=== PATIENT | male | born 1950 | race Caucasian/White ===

== ENCOUNTER 2017-07-25 20:10 | Emergency (ER) | payer OTHER ==
[~2017-07-25] VITALS: Ht 180.3 cm; Wt 111.2 kg
[~2017-07-25 20:10] MED LIST: ASCAUNK; GABA-113 PO; IBUP-1459 PO; MULT-506 PO
[2017-07-25 20:11] VITALS: TEMP 36.8; Ht 180.3 cm; Wt 111.2 kg
[2017-07-25] MEDS ORDERED: ASCO10003 PO (20:38)
[2017-07-25] MEDS ORDERED: LACT1CAP6 PO (20:38)
[2017-07-25] MEDS ORDERED: MELO7.5T5 PO (20:38)
[2017-07-25] MEDS ORDERED: OMEG120013 PO (20:38)
[2017-07-25] MEDS ORDERED: ALLO300T2 PO (20:38)
[2017-07-25] MEDS ORDERED: LEVO75TA5 PO (20:38)
[2017-07-25] MEDS ORDERED: CALC-393 PO (20:38)
[2017-07-25] MEDS ORDERED: NIAC500T11 PO (20:38)
[2017-07-25] MEDS ORDERED: NAPR-1169 PO (20:45)
[2017-07-25] MEDS ORDERED: ANTICRE6 PO (20:45)
[2017-07-25] MEDS ORDERED: ROSU20TA PO (20:45)
--- NOTE | 2017-07-25 20:50 | EMERGENCY ROOM VISIT NOTE ---
History Report prepared by Courtney: Andry Aquino Under the Supervision of: Dr. Baldomero Deluca M.D. First contact with patient: 20:22 Chief Complaint: LEG PAIN,LEG INJURY Stated Complaint: VASCULITIS History of Present Illness The patient is a 66 year old male with a past medical history of lymphoma and vasculitis who presents to the ED with a cc of a worsening rash beginning a week ago. Positive for a fever and gout symptoms. Negative for chills, cough, N/V, and abdominal pain. The patient states that the rash on the back of his calves has significantly worsened from last night into today and spread to other parts of his body. Prior to his rash symptoms, the patient notes that he was experiencing weak calves. He reports that he was just recently diagnosed with vasculitis and also began to experience bad gout a week ago for which he was started on Crestor. The patient states that he traveled to [place] last month. The patient states that his last treatment for lymphoma was 3 years ago. Source of History: patient Onset: a week ago Position: other (global) Quality: other (rash) Timing: worsening Associated Symptoms: + fevers, No chills, No cough, No nausea, No vomiting Review of Systems See HPI for pertinent positives and negatives. A total of ten systems were reviewed and were otherwise negative. Past Medical & Surgical Medical Problems: (1) Lymphoma (2) Vasculitis Family History No pertinent family history stated. Social History Smoking Status: Never Smoker Marital Status: single Housing Status: lives with family Occupation Status: employed Current/Historical Medications Scheduled Allopurinol (Zyloprim), 300 MG PO DAILY Ascorbic Acid (Vitamin C), 1,000 MG PO DAILY Calcium Carbonate (Calcium), 600 MG PO DAILY Gabapentin (Neurontin), 300 MG PO BID Lactobacillus (Probiotic), 1 CAP PO DAILY Levothyroxine Sodium (Levothyroxine Sodium), 75 MCG PO DAILY Multivitamin (Multivitamin), 1 TAB PO DAILY Naproxen (Naprosyn), 500 MG PO DIRECTED Niacin (Niacin), 500 MG PO DAILY [place]-3 Fatty Acids (Fish Oil), 1,200 MG PO DAILY Rosuvastatin Calcium (Crestor), Unknown Dose PO DAILY [Antibiotic], Unknown Dose PO DAILY Scheduled PRN Meloxicam (Mobic), 7.5 MG PO DAILY PRN for Pain Allergies Coded Allergies: Sulfa Drugs (Verified Allergy, Severe, [id number], ITCHY, 07/25/17) Physical Exam Vital Signs Date Time Temp Pulse Resp B/P (MAP) Pulse Ox O2 Delivery O2 Flow Rate FiO2 07/25/17 23:37 59 20 136/84 96 07/25/17 21:54 63 20 138/82 95 Room Air 07/25/17 20:11 36.8 78 18 165/83 98 Room Air Physical Exam GENERAL: Awake, alert, well-appearing, NAD HENT: Normocephalic, atraumatic. EYES: Normal conjunctiva. Sclera non-icteric. NECK: Supple. No nuchal rigidity. FROM. RESPIRATORY: CTAB, no rhonchi, wheezing, crackles CARDIAC: RRR, no MRG ABDOMEN: Soft, NTND, BS+ MSK: No chest wall TTP, no LE edema NEURO: GCS 15, CN 2-12 intact, moves all 4s on command. NVI for lower extremities, Nikolsky negative. SKIN: No rash or jaundice noted. Non blanching petechiae and purpura over abdomen, bilateral buttocks, and lower extremities. Bullae to right posterior calf, compartments soft. Medical Decision & Procedures Laboratory Results 07/25/17 20:55 Red Blood Count 4.41, Mean Corpuscular Volume 86.2, Mean Corpuscular Hemoglobin 29.3, Mean Corpuscular Hemoglobin Concent 33.9, Mean Platelet Volume 9.4, Neutrophils (%) (Auto) 61.7, Lymphocytes (%) (Auto) 26.0, Monocytes (%) (Auto) 6.9, Eosinophils (%) (Auto) 3.9, Basophils (%) (Auto) 0.5, Neutrophils # (Auto) 3.65, Lymphocytes # (Auto) 1.54, Monocytes # (Auto) 0.41, Eosinophils # (Auto) 0.23, Basophils # (Auto) 0.03 07/25/17 20:55 Test 07/25/17 20:55 07/25/17 21:55 White Blood Count 5.92 K/uL (4.8-10.8) Red Blood Count 4.41 M/uL (4.7-6.1) Hemoglobin 12.9 g/dL (14.0-18.0) Hematocrit 38.0 % (42-52) Mean Corpuscular Volume 86.2 fL (80-100) Mean Corpuscular Hemoglobin 29.3 pg (25-34) Mean Corpuscular Hemoglobin Concent 33.9 g/dl (32-36) Platelet Count 343 K/uL (130-400) Mean Platelet Volume 9.4 fL (7.4-10.4) Neutrophils (%) (Auto) 61.7 % Lymphocytes (%) (Auto) 26.0 % Monocytes (%) (Auto) 6.9 % Eosinophils (%) (Auto) 3.9 % Basophils (%) (Auto) 0.5 % Neutrophils # (Auto) 3.65 K/uL (1.4-6.5) Lymphocytes # (Auto) 1.54 K/uL (1.2-3.4) Monocytes # (Auto) 0.41 K/uL (0.11-0.59) Eosinophils # (Auto) 0.23 K/uL (0-0.5) Basophils # (Auto) 0.03 K/uL (0-0.2) RDW Standard Deviation 41.7 fL (36.4-46.3) RDW Coefficient of Variation 13.2 % (11.5-14.5) Immature Granulocyte % (Auto) 1.0 % Immature Granulocyte # (Auto) 0.06 K/uL (0.00-0.02) Erythrocyte Sedimentation Rate 51 mm/hr (0-14) Prothrombin Time 11.6 SECONDS (9.0-12.0) Prothromb Time International Ratio 1.1 (0.9-1.1) Activated Partial Thromboplast Time 31.6 SECONDS (21.0-31.0) Partial Thromboplastin Ratio 1.2 Anion Gap 10.0 mmol/L (3-11) Est Creatinine Clear Calc Drug Dose 80.4 ml/min Estimated GFR () 77.5 Estimated GFR (Non- 66.9 BUN/Creatinine Ratio 20.6 (10-20) Calcium Level 8.7 mg/dl (8.5-10.1) Total Bilirubin 0.3 mg/dl (0.2-1) Direct Bilirubin < 0.1 mg/dl (0-0.2) Aspartate Amino Transf (AST/SGOT) 44 U/L (15-37) Alanine Aminotransferase (ALT/SGPT) 47 U/L (12-78) Alkaline Phosphatase 101 U/L (45-117) C-Reactive Protein 5.32 mg/dl (0-0.29) Total Protein 7.5 gm/dl (6.4-8.2) Albumin 3.2 gm/dl (3.4-5.0) Lipase 236 U/L (73-393) Urine Color YELLOW Urine Appearance CLEAR (CLEAR) Urine pH 5.0 (4.5-7.5) Urine Specific [place] 1.023 (1.000-1.030) Urine Protein NEG (NEG) Urine Glucose (UA) NEG (NEG) Urine Ketones NEG (NEG) Urine Occult Blood NEG (NEG) Urine Nitrite NEG (NEG) Urine Bilirubin NEG (NEG) Urine Urobilinogen NEG (NEG) Urine Leukocyte Esterase NEG (NEG) Laboratory results reviewed by me ED Course 2030: The patient was evaluated in room C1. A complete history and physical exam was performed. 2214: I reevaluated and updated the patient. A hospitalist is currently assessing the patient. He will talk to dermatology to see if the patient needs to stay. 2315: I spoke to Dr. Colunga who spoke to Dr. Rose of Dermatology. It was decided that the patient was not to receive steroids. He will be seen as a walk in tomorrow morning. 2330: I reevaluated and updated the patient. They agree with the plan. 2347: I reevaluated the patient. Discussed results and discharge instructions: He verbalized understanding and agreement. The patient is ready for discharge. Medical Decision The patient is a 66 year old male with a past medical history of lymphoma and vasculitics who presents to the ED with a cc of a worsening rash beginning a week ago. Positive for a fever. Negative for chills, cough, N/V, gout symptoms, and abdominal pain. Differential diagnoses include: vasculitis, HSP, ITP, TTP, bullous pemphigoid, SJS/TEN, cellulitis, abscess, and nec fasc. Patient was seen and evaluated at the bedside. Patient did have a recent change in medications including Crestor, allopurinol, and an antibiotic of which the name he cannot remember. Patient states that he developed these small lesions to his lower extremities beginning on was gotten worse and extended up to his abdomen. Patient does have palpable purpura that is present over the bilateral lower extremities bilateral buttocks as well as the abdomen. Patient does not display any of this over the back or upper extremities neck or face. Patient has no involvement of the conjunctiva oral mucosa. Patient does have some bulla to the right posterior calf. Nikolsky is negative. Given the patient's recent medications it could be a delayed sensitivity reaction to one of these medicines. He was told to stop these at this time. This could be something like Lewis-Cristopher's however does not involve the oral mucosa and may be less likely given that he developed symptoms approximate 7 days after starting the medicines. Less likely to be ITP or TTP as the patient does not have any thrombocytopenia. Less likely to be HSP given the patient's age group however cannot rule out an autoimmune type vasculitis without biopsy. I did discuss the patient with the hospitalist who did discuss the patient with the on-call embossograph operator. They stated that he could be seen as a walk-in tomorrow morning. Given that the patient would not be receiving any additional care until tomorrow morning anyway he was deemed suitable for outpatient follow-up and treatment. I did give the patient strict return precautions as well as some follow-up information with the embossograph operator tomorrow. This also may be some sort of bullous pemphigoid given his age group and the bulla. Patient was given strict follow-up, discharge, and return precautions. All questions were answered. Patient was deemed suitable for outpatient follow-up at this time. Patient agreed with the plan of care and was safely discharged home. Blood Pressure Screening Patient's blood pressure: Normal blood pressure Consults Time Called: 2201 Consulting Physician: Dr. Colunga - Hospitalist, [facility] Returned Call: 2203 Discussed the patient's case. The patient was deemed stable enough for discharge. Impression Primary Impression: Purpura Scribe Attestation The scribe's documentation has been prepared under my direction and personally reviewed by me in its entirety. I confirm that the note above accurately reflects all work, treatment, procedures, and medical decision making performed by me. Departure Information Dispostion Home / Self-Care Referrals Norma Marcelino PA-C (PCP) Evens Rose M.D. Forms HOME CARE DOCUMENTATION FORM, IMPORTANT VISIT INFORMATION Patient Instructions My [facility] Additional Instructions Please return to the emergency department if you have worsening or recurrent symptoms not amenable to at-home treatment. Please call for a follow-up appointment with her primary care physician. Please take your medications as prescribed. If you have other concerns and/or complaints please feel free to also call your primary care physician's office or return the ED for further evaluation, management, and treatment. Cease all your medications until seen by the embossograph operator. Please follow up with Dr. Rose in his office tomorrow. Please call ahead. Address: [address] [place] [id number] You have been examined and treated today on an emergency basis only. This is not a substitute for, or an effort to provide, complete comprehensive medical care. It is impossible to recognize and treat all injuries or illnesses in a single emergency department visit. It is therefore important that you follow up closely with [facility], your PCP, and/or your specialist(s). Call as soon as possible for an appointment. Thank you for your time and consideration. I look forward to speaking with you again soon. Please don't hesitate to call us if you have any questions.
[2017-07-25 21:03] LABS: BASO % 0.5 %; BASO ABS # 0.03 K/uL (0-0.2); COMPLETE YES; EOS % 3.9 %; LYMPH ABS # 1.54 K/uL (1.2-3.4); MEAN CELL VOLUME 86.2 fL (80-100); MEAN CORPUSCULAR HEMOGLOBIN 29.3 pg (25-34); MEAN CORPUSCULAR HGB CONC 33.9 g/dl (32-36); MEAN PLATELET VOLUME 9.4 fL (7.4-10.4); MONO % 6.9 %; NEUT % 61.7 %; PLATELET COUNT 343 K/uL (130-400); RED BLOOD COUNT 4.41 M/uL (4.7-6.1); WHITE BLOOD COUNT 5.92 K/uL (4.8-10.8)
[2017-07-25 21:14] LABS: INR 1.1 (0.9-1.1); PARTIAL THROMBOPLASTIN RATIO 1.2; PROTHROMBIN TIME (PATIENT) 11.6 SECONDS (9.0-12.0)
[2017-07-25 21:23] LABS: ALT/SGPT 47 U/L (12-78); BLOOD UREA NITROGEN 23 mg/dl (7-18); BUN/CREATININE RATIO 20.6 (10-20); C-REACTIVE PROTEIN 5.32 mg/dl (0-0.29); CALCIUM 8.7 mg/dl (8.5-10.1); CARBON DIOXIDE 25 mmol/L (21-32); CHLORIDE 105 mmol/L (98-107); CREATININE 1.13 mg/dl (0.60-1.40); GLUCOSE 183 mg/dl (70-99); POTASSIUM 4.1 mmol/L (3.5-5.1); SODIUM 139 mmol/L (136-145)
[2017-07-25 21:26] LABS: ALKALINE PHOSPHATASE 101 U/L (45-117); AST/SGOT 44 U/L (15-37)
[2017-07-25 22:17] LABS: URINE APPEARANCE CLEAR (CLEAR); URINE BILIRUBIN NEG (NEG); URINE COLOR YELLOW; URINE NITRITE NEG (NEG); URINE SPECIFIC GRAVITY 1.023 (1.000-1.030); UROBILINOGEN NEG (NEG); ZZUR CULT IF INDIC CLEAN CATCH NO
[2017-07-25 22:18] LABS: MANUAL MICROSCOPIC REQUIRED? NO; REVIEW REQ? NO
--- NOTE | 2017-07-25 23:07 | History and Physical ---
History & Physical Date & Time of Service: Jul 25, 2017 at 22:35 Chief Complaint: Vasculitis Primary Care Physician: No Doctor, Assigned History of Present Illness Source: patient 66 y/o M Hx HPL, gout, multiple lymphomas - completed chemotherapy 3 years prior. Pt had a gout flair 10 days ago - treated with Allopurinol and NSAIDs. The flair was largely limited to his L elbow and there was some concern for adjacent cellulitis so that he was placed on a 10 day course of Doxy. He reports a fever 10 days ago only for one day. 7 days ago, he noted an eruption of a scant maculopapular rash over his lower extremities. The lesions appear to start as small central pustules surrounded by a reddish circumscribed area which can then turn toward black in color. The rash has worsened, coalesced over his R calf and spread to his abdomen. The rash is not painful or particularly itchy. His extremities, palms, feet and face are currently spared. He denies a fever, denies CP, SOB, N/V, diarrhea, dysuria. Labs are notable for an elevated ESR. Past Medical/Surgical History 1) Diffuse large B-cell lymphoma 1995. 2) Follicular lymphoma 2002 - recurrence 2005, 2007 - maintenance chemo terminated 2012 - recent follow-up confirmed cancer-free staus per pt. 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 - never smoked Smoking Status: Never Smoker Marital Status: single Occupational Status: employed Allergies Coded Allergies: Sulfa Drugs (Verified Allergy, Severe, [id number], ITCHY, 07/25/17) Home Medications Scheduled Allopurinol (Zyloprim), 300 MG PO DAILY Ascorbic Acid (Vitamin C), 1,000 MG PO DAILY Calcium Carbonate (Calcium), 600 MG PO DAILY Gabapentin (Neurontin), 300 MG PO BID Lactobacillus (Probiotic), 1 CAP PO DAILY Levothyroxine Sodium (Levothyroxine Sodium), 75 MCG PO DAILY Multivitamin (Multivitamin), 1 TAB PO DAILY Naproxen (Naprosyn), 500 MG PO DIRECTED Niacin (Niacin), 500 MG PO DAILY [place]-3 Fatty Acids (Fish Oil), 1,200 MG PO DAILY Rosuvastatin Calcium (Crestor), Unknown Dose PO DAILY [Antibiotic], Unknown Dose PO DAILY Scheduled PRN Meloxicam (Mobic), 7.5 MG PO DAILY PRN for Pain Review of Systems Constitutional: No fever, No chills, No sweats Eyes: No worsening of vision ENT: No hearing loss, No unusual epistaxis, No nasal symptoms Respiratory: No cough, No wheezing Cardiovascular: No chest pain, No orthopnea, No PND Abdomen: No pain, No nausea, No vomiting Musculoskeletal: + joint pain (Resolved folwing gout treatment - limited to R elbow) Genitourinary - Male: No hematuria, No dysuria, No urinary frequency, No urinary urgency Neurologic: No memory loss, No paralysis, No weakness Psychiatric: No depression symptoms Endocrine: No fatigue Hematologic / Lymphatic: No abnormal bleeding/bruising Integumentary: + rash Allergic / Immunologic: No environmental allergies Physical Exam Vital Signs Date Time Temp Pulse Resp B/P (MAP) Pulse Ox O2 Delivery O2 Flow Rate FiO2 07/25/17 21:54 63 20 138/82 95 Room Air 07/25/17 20:11 36.8 78 18 165/83 98 Room Air General Appearance: WD/WN, no apparent distress Head: normocephalic Eyes: normal inspection ENT: normal ENT inspection, pharynx normal Neck: supple, no JVD Respiratory/Chest: chest non-tender, lungs clear, normal breath sounds Cardiovascular: regular rate, rhythm, no edema, no gallop Abdomen/GI: normal bowel sounds, non tender, soft Back: normal inspection, no CVA tenderness, no muscle spasm, normal range of motion Extremities/Musculoskelatal: normal inspection Neurologic/Psych: 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, no motor/sensory deficits, alert, normal mood/affect, normal reflexes, oriented x 3 Skin: + pertinent finding (Maculpapular rash - erythematous to necrotic circumscribed lesions lesions over lower extremities and scant distribution over abdomen - small, central pustules present over early lesions - there is some excoriation over the skin of the elbow) Diagnostics Laboratory Results Results Past 24 Hours Test 07/25/17 20:55 07/25/17 21:55 Range/Units White Blood Count 5.92 4.8-10.8 K/uL Red Blood Count 4.41 4.7-6.1 M/uL Hemoglobin 12.9 14.0-18.0 g/dL Hematocrit 38.0 42-52 % Mean Corpuscular Volume 86.2 80-100 fL Mean Corpuscular Hemoglobin 29.3 25-34 pg Mean Corpuscular Hemoglobin Concent 33.9 32-36 g/dl Platelet Count 343 130-400 K/uL Mean Platelet Volume 9.4 7.4-10.4 fL Neutrophils (%) (Auto) 61.7 % Lymphocytes (%) (Auto) 26.0 % Monocytes (%) (Auto) 6.9 % Eosinophils (%) (Auto) 3.9 % Basophils (%) (Auto) 0.5 % Neutrophils # (Auto) 3.65 1.4-6.5 K/uL Lymphocytes # (Auto) 1.54 1.2-3.4 K/uL Monocytes # (Auto) 0.41 0.11-0.59 K/uL Eosinophils # (Auto) 0.23 0-0.5 K/uL Basophils # (Auto) 0.03 0-0.2 K/uL RDW Standard Deviation 41.7 36.4-46.3 fL RDW Coefficient of Variation 13.2 11.5-14.5 % Immature Granulocyte % (Auto) 1.0 % Immature Granulocyte # (Auto) 0.06 0.00-0.02 K/uL Erythrocyte Sedimentation Rate 51 0-14 mm/hr Prothrombin Time 11.6 9.0-12.0 SECONDS Prothromb Time International Ratio 1.1 0.9-1.1 Activated Partial Thromboplast Time 31.6 21.0-31.0 SECONDS Partial Thromboplastin Ratio 1.2 Sodium Level 139 136-145 mmol/L Potassium Level 4.1 3.5-5.1 mmol/L Chloride Level 105 98-107 mmol/L Carbon Dioxide Level 25 21-32 mmol/L Anion Gap 10.0 3-11 mmol/L Blood Urea Nitrogen 23 7-18 mg/dl Creatinine 1.13 0.60-1.40 mg/dl Est Creatinine Clear Calc Drug Dose 80.4 ml/min Estimated GFR () 77.5 Estimated GFR (Non- 66.9 BUN/Creatinine Ratio 20.6 10-20 Random Glucose 183 70-99 mg/dl Calcium Level 8.7 8.5-10.1 mg/dl Total Bilirubin 0.3 0.2-1 mg/dl Direct Bilirubin < 0.1 0-0.2 mg/dl Aspartate Amino Transf (AST/SGOT) 44 15-37 U/L Alanine Aminotransferase (ALT/SGPT) 47 12-78 U/L Alkaline Phosphatase 101 45-117 U/L C-Reactive Protein 5.32 0-0.29 mg/dl Total Protein 7.5 6.4-8.2 gm/dl Albumin 3.2 3.4-5.0 gm/dl Lipase 236 73-393 U/L Urine Color YELLOW Urine Appearance CLEAR CLEAR Urine pH 5.0 4.5-7.5 Urine Specific [place] 1.023 1.000-1.030 Urine Protein NEG NEG Urine Glucose (UA) NEG NEG Urine Ketones NEG NEG Urine Occult Blood NEG NEG Urine Nitrite NEG NEG Urine Bilirubin NEG NEG Urine Urobilinogen NEG NEG Urine Leukocyte Esterase NEG NEG Impression Assessment and Plan 66 y/o M Hx HPL, gout, multiple lymphomas - completed chemotherapy 3 years prior. Pt had a gout flair 10 days ago - treated with Allopurinol and NSAIDs. The flair was largely limited to his L elbow and there was some concern for adjacent cellulitis so that he was placed on a 10 day course of Doxy. He reports a fever 10 days ago only for one day. 7 days ago, he noted an eruption of a scant maculopapular rash over his lower extremities. The lesions appear to start as small central pustules surrounded by a reddish circumscribed area which can then turn toward black in color. The rash has worsened, coalesced over his R calf and spread to his abdomen. The rash is not painful or particularly itchy. His extremities, palms, feet and face are currently spared. He denies a fever, denies CP, SOB, N/V, diarrhea, dysuria. Labs are notable for an elevated ESR. 1) Rash - possibly a drug-related eruption as he was placed on Doxy 3 days before the rash started. He has also recently started Crestor and had increased NSAID use due to gout. The primary concern here would be early Celio-Cristopher or a vasculitic rash. There is no convincing evidence of infection so that we will hold the majority of his medications pending dermatology assessment and would consider initiation of steroid therapy. We have contacted the dermatology clinic to schedule an AM appointment and have discussed the case with dermatology. The pt will therefore be DCd to f/u with derm and can be referred back to the hospital if needed. He is advised to return with onset of systemic symptoms or rapid/accelerated spread of his rash. 2) HPL - Crestor held 3) Hypothyroidism - Cont Synthroid 4) Gout - can be treated with Steroids pending rash resolution as needed. Please consider the above an outpt consult Total time for this consult including review of labs, meds, imaging - discussion with pt and ER attending - 37 min Level of Care Med/Surg Resuscitation Status FULL RESUSCITATION VTE Prophylaxis Given or contraindicated: Drug Interaction
[2017-07-25 23:37] VITALS: BP 136/84; PULSE 59; O2SAT 96
== END 2017-07-25 23:38 | disposition home or self-care (01) ==
LOC: C.EDB 20:10 → C.EDC 23:38
DX: D69.2 Other nonthrombocytopenic purpura (principal); C85.90 Non-Hodgkin lymphoma, unspecified, unspecified site; I77.6 Arteritis, unspecified

== ENCOUNTER 2019-10-27 10:04 | Inpatient (IN) ==
[2019-10-27] MEDS ORDERED: SODIUM CHLORIDE 0.9% 1000ML 2,000 ML IV ONE (10:51)
[2019-10-27 10:57] LABS: Basophils # (auto) 0.02 K/uL (0-0.2); Basophils % (auto) 0.4 %; Eosinophils # (auto) 0.11 K/uL (0-0.5); Eosinophils % (auto) 2.1 %; Hematocrit (blood only) 40.4 % (42-52); Hemoglobin 14.8 g/dL (14.0-18.0); Immature Granulocytes # (auto) 0.02 K/uL (0.00-0.02); Immature Granulocytes % (auto) 0.4 %; Lymphocytes # (auto) 1.46 K/uL (1.2-3.4); Lymphocytes % (auto) 28.2 %; Mean Corpuscular Hemoglobin 30.5 pg (25-34); Mean Corpuscular Hgb Conc 36.6 g/dL (32-36); Mean Corpuscular Volume 83.1 fL (80-100); Mean Platelet Volume 10.9 fL (7.4-10.4); Monocytes # (auto) 0.45 K/uL (0.11-0.59); Monocytes % (auto) 8.7 %; Neutrophils # (auto) 3.12 K/uL (1.4-6.5); Neutrophils % (auto) 60.2 %; Platelet Count 195 K/uL (130-400); RDW Coefficient of Variation 13.4 % (11.5-14.5); RDW Standard Deviation 40.1 fL (36.4-46.3); Red Blood Count 4.86 M/uL (4.7-6.1); White Blood Count 5.18 K/uL (4.8-10.8)
[2019-10-27 11:15] LABS: Base Excess VBG 2.4 mEq/L; Oxygen Saturation VBG 66.5 %; pH VBG 7.42 (7.36-7.41)
[2019-10-27 11:28] LABS: Albumin Level 3.9 gm/dl (3.4-5.0); BUN Creatinine Ratio 22.6 (10-20); Bilirubin,Total 0.7 mg/dl (0.2-1); Calcium 9.4 mg/dl (8.5-10.1); Creatinine Clr Calc Pharmacy 59.6 ml/min; Est GFR (African American) 57.5; Est GFR (Non-African American) 49.6; Globulin 4.1 gm/dl (2.5-4.0); Potassium 4.5 mmol/L (3.5-5.1)
[2019-10-27 11:48] LABS: Beta-Hydroxybutyrate 2.36 mg/dl (0.2-2.81)
[2019-10-27 11:50] LABS: Appearance Urine Clear (Clear); Bilirubin Urine Negative (Negative); Blood Urine Negative (Negative); Color Urine Yellow; Glucose Urine UA 3+ (Negative); Ketones Urine Negative (Negative); Leukocyte Esterase Urine Negative (Negative); Nitrite Urine Negative (Negative); Protein Urine Negative (Negative); Specific Gravity Urine 1.031 (1.000-1.030); Urobilinogen Urine Negative (Negative)
[2019-10-27] MEDS ORDERED: NovoLIN-R INSULIN PER UNIT CHARGE IV STA (12:01)
--- NOTE | 2019-10-27 13:39 | History & Physical Report ---
Date of Service October 27, 2019 Assessment & Plan (1) Hyperglycemia: (2) Diabetes mellitus type II, uncontrolled: This is a 68-year-old male with a PMH of recurrent low-grade lymphoma in remission, newly diagnosed type 2 diabetes, HLD and other medical problems listed below who presents based on PCP recommendation due to hyperglycemia. -Endorses polydipsia, polyuria, blurred vision and 20 lb weight loss since August -Hgb a1c yesterday elevated at 12 and was sent to ED for further mgmt -Initial BSG of 726 that decreased to 564 after 2 L NSS. Was given 10 units of IV regular insulin with repeat BSG of 372 -Glycemic management per pharmacy with basal/bolus regimen as well as OP medication recommendations -Will monitor electrolytes closely and continue IV fluid resuscitation -Diabetic education consult (3) Acute kidney injury: Cr elevated at 1.41 in setting of dehydration (baseline Cr ~ 1) -IV fluids, holding meloxicam -Repeat BMP tomorrow (4) Hypertriglyceridemia: Continue gemfibrozil, niacin (5) Lymphoma, low grade: Follows with Dr. Chavez. Has been in remission for the past few years (6) Gout: Continue allopurinol DVT Ppx: SQ heparin Code status: FULL PCP: Harvey Dispo: Admitted to [facility]. Plan to return home once medically stable. Patient seen in collaboration with Dr. Wesley. Please see addendum. History of Present Illness Chief Complaint: Hyperglycemia, sent from PCP Primary Care Provider: Keerthi Gabriel MD This is a 68-year-old male with a PMH of recurrent low-grade lymphoma in remission, newly diagnosed type 2 diabetes, HLD and other medical problems listed below who presents based on PCP recommendation due to hyperglycemia. Patient initially noted to have elevated blood glucose at the end of September but states he is not started on any medication. For the past few months, endorses increased thirst, urination and a 20 pound weight loss. Also endorses blurry vision and generalized weakness. Had lab work done yesterday and was found to have an elevated hemoglobin A1c of 12. Was sent to ED for further evaluation and concern for DKA/HHS. Upon arrival, was found to have elevated BSG of 726. Creatinine elevated at 1.43 (baseline creatinine ~1). No ketones in urine and beta hydroxybutyric acid is within normal range. Denies any fever, chills, chest pain, palpitations, shortness of breath, nausea, vomiting, abdominal pain, dysuria, diarrhea or constipation. Allergies Allergy/AdvReac Type Severity Reaction Status Date / Time Sulfa (Sulfonamide Allergy Severe [id number], Verified 10/27/19 11:34 Antibiotics) ITCHY doxycycline AdvReac Severe vasculitis Unverified 10/27/19 11:34 Home Medications Home Medications Medication Instructions Recorded Confirmed Type allopurinol 100 mg PO QAM 10/27/19 10/27/19 History allopurinol 300 mg PO QAM 10/27/19 10/27/19 History ascorbic acid (vitamin C) [Vitamin 1,000 mg PO HS 10/27/19 10/27/19 History C] cholecalciferol (vitamin D3) 1,000 unit PO HS 10/27/19 10/27/19 History [Vitamin D3] cyanocobalamin (vitamin B-12) 1,000 mcg PO HS 10/27/19 10/27/19 History [Vitamin B-12] diphenhydramine-acetaminophen 1 tab PO HS 10/27/19 10/27/19 History [Tylenol PM Extra Strength] docusate sodium [Colace] 100 mg PO HS 10/27/19 10/27/19 History gabapentin 300 mg PO BID 10/27/19 10/27/19 History gemfibrozil 600 mg PO BID 10/27/19 10/27/19 History lactobacillus combo no.11 1 cap PO DAILY 10/27/19 10/27/19 History [Probiotic] levothyroxine 88 mcg PO QAM 10/27/19 10/27/19 History melatonin 5 mg PO HS 10/27/19 10/27/19 History meloxicam 15 mg PO QAM 10/27/19 10/27/19 History multivitamin 1 tab PO HS 10/27/19 10/27/19 History niacin 50 mg PO QAM 10/27/19 10/27/19 History omeprazole 20 mg PO DAILY PRN 10/27/19 10/27/19 History sennosides [senna] 8.6 mg PO HS 10/27/19 10/27/19 History Past Med/Surg History Medical History (Updated 10/27/19 @ 14:43 by Julee Scott, PA-C) Gout Hypertriglyceridemia Lymphoma, low grade Surgical History (Updated 10/27/19 @ 14:39 by Julee Chavez PA-C) H/O umbilical hernia repair Family History Other Cancer Diabetes Social History (Updated 10/27/19 @ 14:40 by Julee Chavez PA-C) Feels Safe at Home: Yes Smoking Status: Never smoker Hx Alcohol Use: No Hx Substance Use: No Review of Systems Review of Systems: At least ten systems reviewed and negative except as noted in the HPI. Physical Exam Physical Exam: Please see Dr. Wesley's addendum for physical exam. Results & Data Vital Signs (Past 12 Hours) Vital Signs Temp Pulse Pulse Resp BP BP Pulse Ox 10/27/19 11:32 66 19 123/74 97 10/27/19 10:14 36.9 C 82 16 127/82 97 Laboratory Results Short CBC 10/27/19 Range/Units 10:40 WBC 5.18 (4.8-10.8) K/uL Hgb 14.8 (14.0-18.0) g/dL Hct 40.4 L (42-52) % Plt Count 195 (130-400) K/uL BMP 10/27/19 10/27/19 10:40 10:40 Sodium Cancelled 128 L Potassium Cancelled 4.5 Chloride Cancelled 93 L Carbon Dioxide Cancelled 26 BUN Cancelled 32 H Creatinine Cancelled 1.43 H Glucose Cancelled 726 H* Calcium Cancelled 9.4 Liver Function 10/27/19 Range/Units 10:40 Total Bilirubin 0.7 (0.2-1) mg/dl AST 18 (15-37) U/L ALT 35 (12-78) U/L Alkaline Phosphatase 126 H (45-117) U/L Albumin 3.9 (3.4-5.0) gm/dl Urine 10/27/19 Range/Units 11:30 Urine Color Yellow Urine Appearance Clear (Clear) Urine pH 6.0 (4.5-7.5) Ur Specific [place] 1.031 H (1.000-1.030) Urine Protein Negative (Negative) Urine Glucose (UA) 3+ H (Negative) Code Status & VTE Plan VTE Prophylaxis Plan VTE Prophylaxis will be ordered: Yes Supervising Physician Co-Signing Physician Notes I saw this patient with the physician clinical lab assistant, I participated in the history, physical, review of systems, and physical exam. I reviewed the medications with the patient and the physician clinical lab assistant and helped reconcile the medications. I helped take a detailed family and social history as well. I formulated the assessment and plan personally with the physician clinical lab assistant and went over it with the patient. ROS-No Headache, No Visual Changes, No Nausea, No Vomiting, No Fever, No Chills, No Neck Pain or Stiffness, No Chest Pain, No Palpitations, No SOB, No LAND, No Cough, No Sputum, No Wheezing, No Abdominal Pain, No Diarrhea, No Hematemesis, No Hemoptysis, No Unexpected Weight Loss, No Flank pain, No Melena, No Hematochezia, No Frequency, No Urgency, No Burning, No Hematuria, No Rashes, No Diaphoresis. Appetite is Normal Physical Exam Gen-AAO x 3, NAD, Afebrile Head-NCAT, EOMI, PERRLA, Anicteric Sclera, No Posterior Pharyngeal Erythema Neck-Supple, No JVD, No Thyromegaly, No Masses, No LAD, No Bruits Lungs-Clear to Auscultation Bilaterally, No Rales, No Rhonchi, No Wheezing, No Crepitus Chest-No S4, +S1, +S2, No S3, No Murmurs, No Rubs, No Gallops, No Ectopy Abdomen-Soft, Bowel Sounds Present, Non Tender, Non Distended, No Hepatomegaly, No Splenomegaly, No Palpable Masses, No Rebound, No Rigidity, No Guarding Musculoskeletal-Full Range of Motion Bilaterally, No CVAT Extremities-No Cyanosis, No Clubbing, No Edema Nuero-Cranial Nerves II-XII grossly intact, Motor WNL, DTRs WNL, Strength WNL, Non Focal Psych-Normal Mood
[2019-10-27] MEDS ORDERED: PANTOprazole 40 MG TAB PO PRN (14:10)
[2019-10-27] MEDS ORDERED: PENDING 1/2NSS+20mEq KCL IVF SCH (14:22)
[2019-10-27] MEDS ORDERED: ONDANSETRON INJ 2 MG/ML 2 ML VIAL IV PRN (14:22)
[2019-10-27] MEDS ORDERED: ACETAMINOPHEN 325 MG TAB PO PRN (14:22)
[2019-10-27] MEDS ORDERED: HHS GOAL RANGE 250-350 mg/dl ONE (14:22)
[2019-10-27] MEDS ORDERED: POLYETHYLENE (MIRALAX) 17 GM PACK PO PRN (14:22)
--- NOTE | 2019-10-27 14:37 | Emergency Department Note ---
Entered by Johnnie Hodge acting as a scribe for Surya Mazariegos DO History of Present Illness General Chief complaint: Hyperglycemia Stated complaint: HIGH BLOOD SUGAR, REFERED BY DOCTOR Time Seen by Provider: 10/27/19 10:33 Source: patient History of Present Illness Onset (ago): month(s) (few) Location: mouth Pain Consistency: + constant Maximum Pain Intensity: 0 Quality: + other (increase in thirst) Relieved By: + other (soda) Associated symptoms: + denies other symptoms (runny nose, vomiting, diarrhea) and + other (20lbs weight loss, fatigue, rundown) The patient is a 68 y/o male who presents to the ED w/ CC of a constant increase in thirst beginning a few months ago. The patient states his symptoms started with increased thirst and the inability to relieve his dry mouth. He reports soda was the only thing able to do this, so his intake of sugar has been high the past few months. The patient notes he unintentionally lost 20lbs over the past two months and has also be very fatigue and run down. He states he recently finished treatment for strep throat and a respiratory infection. The patient reports he took Flonase and Zyrtec and did not have steroids. He notes he was evaluated by his PCP and was told his sugar were elevated and needed to come to the ED. The patient denies a runny nose, vomiting, and diarrhea. Home Medications Home Medications Medication Instructions Recorded Confirmed Type allopurinol 100 mg PO QAM 10/27/19 10/27/19 History allopurinol 300 mg PO QAM 10/27/19 10/27/19 History ascorbic acid (vitamin C) [Vitamin 1,000 mg PO 10/27/19 10/27/19 History C] cholecalciferol (vitamin D3) 1,000 unit PO 10/27/19 10/27/19 History [Vitamin D3] cyanocobalamin (vitamin B-12) 1,000 mcg PO 10/27/19 10/27/19 History [Vitamin B-12] diphenhydramine-acetaminophen 1 tab PO 10/27/19 10/27/19 History [Tylenol PM Extra Strength] docusate sodium [Colace] 100 mg PO 10/27/19 10/27/19 History gabapentin 300 mg PO BID 10/27/19 10/27/19 History gemfibrozil 600 mg PO BID 10/27/19 10/27/19 History lactobacillus combo no.11 1 cap PO DAILY 10/27/19 10/27/19 History [Probiotic] levothyroxine 88 mcg PO QAM 10/27/19 10/27/19 History melatonin 5 mg PO HS 10/27/19 10/27/19 History meloxicam 15 mg PO QAM 10/27/19 10/27/19 History multivitamin 1 tab PO HS 10/27/19 10/27/19 History niacin 50 mg PO QAM 10/27/19 10/27/19 History omeprazole 20 mg PO DAILY PRN 10/27/19 10/27/19 History sennosides [senna] 8.6 mg PO HS 10/27/19 10/27/19 History Allergies Allergy/AdvReac Type Severity Reaction Status Date / Time Sulfa (Sulfonamide Allergy Severe [id number], Verified 10/27/19 11:34 Antibiotics) ITCHY doxycycline AdvReac Severe vasculitis Unverified 10/27/19 11:34 Past Med/Surg History Medical History Vasculitis Surgical History No pertinent past surgical history Family History Other Cancer Diabetes Social History Feels Safe at Home: Yes Smoking Status: Never smoker Review of Systems See HPI for pertinent positives & negatives. and A total of 10 systems reviewed and were otherwise negative Physical Exam Vital Signs Vital Signs - 24 hr 10/27/19 10:14 10/27/19 11:32 Temperature 36.9 C Temperature Source Oral Pulse Rate 82 Pulse Rate [Apical] 66 Respiratory Rate 16 19 Blood Pressure 127/82 Blood Pressure [Right Arm] 123/74 Blood Pressure Mean 97 Blood Pressure Mean [Right Arm] 90 Pulse Oximetry 97 97 Oxygen Delivery Method Room Air Sepsis Recent Fever Within 48 Hours No Sepsis Action Taken by Nursing No Action Required GENERAL: Sitting up in bed, alert, well nourished, no distress, non-toxic EYE EXAM: normal conjunctiva OROPHARYNX: no exudate, no erythema, lips, buccal mucosa, and tongue normal and mucous membranes are dry NECK: supple, no nuchal rigidity, no adenopathy, non-tender LUNGS: Clear to auscultation. Normal chest wall mechanics HEART: no murmurs, S1 normal and S2 normal ABDOMEN: abdomen soft, non-tender, normo-active bowel sounds, no masses, no rebound or guarding. BACK: Back is symmetrical on inspection and there is no deformity, no midline tenderness, no CVA tenderness. SKIN: no rashes and no bruising UPPER EXTREMITIES: upper extremities are grossly normal. LOWER EXTREMITIES: No pitting edema. NEURO EXAM: Normal sensorium, cranial nerves II-XII intact, normal speech, no weakness of arms, no weakness of legs. Course Course ED COURSE: Vital signs were reviewed and showed hypertension The patients medical record was reviewed The above diagnostic studies were performed and reviewed. ED treatments and interventions as stated above. 1036: The patient was evaluated in room C09 by the resident under my supervision. A complete history and physical examination was performed. 1054: The patient was evaluated in room C09 by me. A complete history and physical exam was performed. 1251: I discussed the patient's case with his PCP, Dr. Gabriel. She would like a hospitalist evaluation because she does not believe the patient's sugars will be able to be controlled properly over the weekend. 1317: Upon reevaluation, the patient is resting.I discussed my findings with the him and he understands and agrees with the treatment plan. 1321: I reviewed the patient's case with Julee Chavez PA-C, [facility] Hospitalist, attending Dr. Wesley. She will evaluate the patient for further management. Based on the patients age, coexisting illnesses, exam and lab findings the decision to treat as an inpatient was made. The patient remained stable while under my care. The patient will be evaluated for further management. Administered Medications Discontinued Medications Sodium Chloride (Nss 1000ml) 2,000 mls @ 999 mls/hr IV .Q2H1M ONE Stop: 10/27/19 12:51 Last Infusion: 10/27/19 12:52 Dose: 0 mls/hr Documented by: [id number] Admin: 10/27/19 10:58 Dose: 999 mls/hr Documented by: [id number] Insulin Human Regular (Novolin R U-100 Per Unit) 10 units IV NOW STA Stop: 10/27/19 12:02 Last Admin: 10/27/19 12:12 Dose: 10 units Documented by: [id number] Cosigned by: [id number] Medical Decision Making Differential Diagnosis Differential Diagnosis includes but is not limited to dehydration, stroke, anemia, hypoglycemia, hyponatremia, hypernatremia, urinary tract infection, pneumonia, bronchitis, sepsis, gastroenteritis, additional abdominal pathology, metabolic abnormalities and infections. Medical Records Attestation: I reviewed the patient's medical records. Home Medications Current Medication List: was personally reviewed by me Laboratory Data Attestation: I reviewed the patient's lab results. Result diagrams: 10/27/19 10:40 10/27/19 10:40 Lab Results 10/27/19 10/27/19 10/27/19 Range/Units 10:33 10:40 10:40 WBC 5.18 (4.8-10.8) K/uL RBC 4.86 (4.7-6.1) M/uL Hgb 14.8 (14.0-18.0) g/dL Hct 40.4 L (42-52) % MCV 83.1 (80-100) fL MCH 30.5 (25-34) pg MCHC 36.6 H (32-36) g/dL RDW Std Deviation 40.1 (36.4-46.3) fL RDW Coeff of Radha 13.4 (11.5-14.5) % Plt Count 195 (130-400) K/uL MPV 10.9 H (7.4-10.4) fL Immature Gran % (Auto) 0.4 % Neut % (Auto) 60.2 % Lymph % (Auto) 28.2 % Ocean % (Auto) 8.7 % Eos % (Auto) 2.1 % Baso % (Auto) 0.4 % Immature Gran # (Auto) 0.02 (0.00-0.02) K/uL Neut # (Auto) 3.12 (1.4-6.5) K/uL Lymph # (Auto) 1.46 (1.2-3.4) K/uL Ocean # (Auto) 0.45 (0.11-0.59) K/uL Eos # (Auto) 0.11 (0-0.5) K/uL Baso # (Auto) 0.02 (0-0.2) K/uL VBG pH (7.36-7.41) VBG pCO2 (38-50) mmHg VBG pO2 mmHg VBG HCO3 mmol/L VBG O2 Saturation % VBG Base Excess mEq/L Barometric Pressure mm/Hg Sodium Cancelled Potassium Cancelled Chloride Cancelled Carbon Dioxide Cancelled Anion Gap Cancelled BUN Cancelled Creatinine Cancelled Est Cr Clr Drug Dosing Cancelled Est GFR ( Amer) Cancelled Est GFR (Non-Af Amer) Cancelled BUN/Creatinine Ratio Cancelled Glucose Cancelled POC Glucose > 600 H* (70-99) mg/dl Calcium Cancelled Total Bilirubin (0.2-1) mg/dl AST (15-37) U/L ALT (12-78) U/L Alkaline Phosphatase (45-117) U/L Total Protein (6.4-8.2) gm/dl Albumin (3.4-5.0) gm/dl Globulin (2.5-4.0) gm/dl Albumin/Globulin Ratio (0.9-2) Lipase (73-393) U/L Beta-Hydroxybutyric Acd (0.2-2.81) mg/dl Urine Color Urine Appearance (Clear) Urine pH (4.5-7.5) Ur Specific [place] (1.000-1.030) Urine Protein (Negative) Urine Glucose (UA) (Negative) Urine Ketones (Negative) Urine Blood (Negative) Urine Nitrite (Negative) Urine Bilirubin (Negative) Urine Urobilinogen (Negative) Ur Leukocyte Esterase (Negative) 10/27/19 10/27/19 10/27/19 Range/Units 10:40 11:05 11:30 WBC (4.8-10.8) K/uL RBC (4.7-6.1) M/uL Hgb (14.0-18.0) g/dL Hct (42-52) % MCV (80-100) fL MCH (25-34) pg MCHC (32-36) g/dL RDW Std Deviation (36.4-46.3) fL RDW Coeff of Radha (11.5-14.5) % Plt Count (130-400) K/uL MPV (7.4-10.4) fL Immature Gran % (Auto) % Neut % (Auto) % Lymph % (Auto) % Ocean % (Auto) % Eos % (Auto) % Baso % (Auto) % Immature Gran # (Auto) (0.00-0.02) K/uL Neut # (Auto) (1.4-6.5) K/uL Lymph # (Auto) (1.2-3.4) K/uL Ocean # (Auto) (0.11-0.59) K/uL Eos # (Auto) (0-0.5) K/uL Baso # (Auto) (0-0.2) K/uL VBG pH 7.42 H (7.36-7.41) VBG pCO2 43 (38-50) mmHg VBG pO2 36 mmHg VBG HCO3 27 mmol/L VBG O2 Saturation 66.5 % VBG Base Excess 2.4 mEq/L Barometric Pressure 740.8 mm/Hg Sodium 128 L Potassium 4.5 Chloride 93 L Carbon Dioxide 26 Anion Gap 9.0 BUN 32 H Creatinine 1.43 H Est Cr Clr Drug Dosing 59.6 Est GFR ( Amer) 57.5 Est GFR (Non-Af Amer) 49.6 BUN/Creatinine Ratio 22.6 H Glucose 726 H* POC Glucose (70-99) mg/dl Calcium 9.4 Total Bilirubin 0.7 (0.2-1) mg/dl AST 18 (15-37) U/L ALT 35 (12-78) U/L Alkaline Phosphatase 126 H (45-117) U/L Total Protein 8.0 (6.4-8.2) gm/dl Albumin 3.9 (3.4-5.0) gm/dl Globulin 4.1 H (2.5-4.0) gm/dl Albumin/Globulin Ratio 1.0 (0.9-2) Lipase 301 (73-393) U/L Beta-Hydroxybutyric Acd 2.36 (0.2-2.81) mg/dl Urine Color Yellow Urine Appearance Clear (Clear) Urine pH 6.0 (4.5-7.5) Ur Specific [place] 1.031 H (1.000-1.030) Urine Protein Negative (Negative) Urine Glucose (UA) 3+ H (Negative) Urine Ketones Negative (Negative) Urine Blood Negative (Negative) Urine Nitrite Negative (Negative) Urine Bilirubin Negative (Negative) Urine Urobilinogen Negative (Negative) Ur Leukocyte Esterase Negative (Negative) 10/27/19 10/27/19 Range/Units 12:03 13:20 WBC (4.8-10.8) K/uL RBC (4.7-6.1) M/uL Hgb (14.0-18.0) g/dL Hct (42-52) % MCV (80-100) fL MCH (25-34) pg MCHC (32-36) g/dL RDW Std Deviation (36.4-46.3) fL RDW Coeff of Radha (11.5-14.5) % Plt Count (130-400) K/uL MPV (7.4-10.4) fL Immature Gran % (Auto) % Neut % (Auto) % Lymph % (Auto) % Ocean % (Auto) % Eos % (Auto) % Baso % (Auto) % Immature Gran # (Auto) (0.00-0.02) K/uL Neut # (Auto) (1.4-6.5) K/uL Lymph # (Auto) (1.2-3.4) K/uL Ocean # (Auto) (0.11-0.59) K/uL Eos # (Auto) (0-0.5) K/uL Baso # (Auto) (0-0.2) K/uL VBG pH (7.36-7.41) VBG pCO2 (38-50) mmHg VBG pO2 mmHg VBG HCO3 mmol/L VBG O2 Saturation % VBG Base Excess mEq/L Barometric Pressure mm/Hg Sodium Potassium Chloride Carbon Dioxide Anion Gap BUN Creatinine Est Cr Clr Drug Dosing Est GFR ( Amer) Est GFR (Non-Af Amer) BUN/Creatinine Ratio Glucose POC Glucose 564 H* 372 H* (70-99) mg/dl Calcium Total Bilirubin (0.2-1) mg/dl AST (15-37) U/L ALT (12-78) U/L Alkaline Phosphatase (45-117) U/L Total Protein (6.4-8.2) gm/dl Albumin (3.4-5.0) gm/dl Globulin (2.5-4.0) gm/dl Albumin/Globulin Ratio (0.9-2) Lipase (73-393) U/L Beta-Hydroxybutyric Acd (0.2-2.81) mg/dl Urine Color Urine Appearance (Clear) Urine pH (4.5-7.5) Ur Specific [place] (1.000-1.030) Urine Protein (Negative) Urine Glucose (UA) (Negative) Urine Ketones (Negative) Urine Blood (Negative) Urine Nitrite (Negative) Urine Bilirubin (Negative) Urine Urobilinogen (Negative) Ur Leukocyte Esterase (Negative) Blood Pressure Blood Pressure Findings: Elevated blood pressure Blood Pressure Disposition: further management by hospitalist MDM Narrative Patient is a 68-year-old male who was referred in by PCP for hyperglycemia. Patient had blood work and an outpatient will perform yesterday which showed that he was hyperglycemic but there is no significant gap or metabolic acidosis and sodium was fairly appropriate. Of note upon review of the chart from the [facility] blood sugar has been elevated in the mid 300s at the end of September. A1c was 12 from yesterday. IV was established blood work was obtained and showed no significant leukocytosis or anemia. BMP with a pH which is slightly high at 7.42. Sodium was marginally low at 128 although appropriate for the hyper glycemia. Creatinine slightly up at 1.4. Potassium was appropriate at 4.5. Initial glucose was 726. Patient was given 2 L of fluid and blood sugar trended down to 500s. He was given 10 units IV insulin and again trended down to 372. BMP LFTs and lipase was unremarkable. Beta hydroxybutyric was unremarkable. There is no ketones in the urine. Patient did feel better. He was updated bedside. Discussed with his PCP who believed that he could follow-up as an outpatient tomorrow and have additional management of his blood sugars and adjustment of insulin. Dr. Mayo who sent the patient in did not believe that this would be possible and recommended observation because they would not be able to get him into the office. Based on this update the patient discussed with the hospitalist patient will be observed for hyperglycemia new onset diabetes although I do believe that this is been there for over a month with his previous glucose at the end of September being in the mid 300s. Impression & Plan Hyperglycemia, Dehydration, Acute hyponatremia Discharge Plan Visit Data *Final* Discharge Date/Time: 10/27/19 13:55 Chief Complaint: Hyperglycemia Stated Complaint: HIGH BLOOD SUGAR, REFERED BY DOCTOR ED Provider: Surya Mazariegos ED Midlevel Provider: Pietro Reynolds Discharge Problem: Hyperglycemia, Dehydration, Acute hyponatremia Patient Disposition: Being Evaluated by Hospitalist Discharge Instructions Interventions: ED Discharge Assessment Last Done: 10/27/19 13:55 The scribe's documentation has been prepared under my direction and personally reviewed by me in its entirety. I confirm that the note above accurately reflects all work, treatment, procedures, and medical decision making performed by me.
[2019-10-27] MEDS ORDERED: PHARMACY GLYCEMIC MGMT CONSULT SCH (14:40)
[2019-10-27] MEDS ORDERED: NORMOSOL-R 1,000 ML IV SCH (14:45)
[2019-10-27] MEDS ORDERED: CARBOHYDRATES FOR HYPOGLYCEMIA PO PRN (15:00)
[2019-10-27] MEDS ORDERED: DEXTROSE 50% 50 ML SYRINGE IV PRN (15:00)
[2019-10-27] MEDS ORDERED: GLUCOSE 10 TABS/TUBE PO PRN (15:00)
[2019-10-27] MEDS ORDERED: GLUCOSE 40% GEL 15 GM TUBE PO PRN (15:00)
[2019-10-27] MEDS ORDERED: GLUCAGON FOR INJ 1 MG VIAL IM PRN (15:00)
--- NOTE | 2019-10-27 15:02 | Pharmacy Report ---
Glycemic Control Consultation - Date of Service October 27, 2019 - Scope Scope: Glycemic Pharmacist consulted by Julee Chavez PA-C on 10/27/19 for glycemic control and to write orders per [facility] inpatient glycemic control protocol - Objective Weight: 103 kg Accuchecks BSG (last 24hrs): 10/27/19 10/27/19 10/27/19 10:33 10:40 10:40 Glucose Cancelled 726 H* POC Glucose > 600 H* 10/27/19 10/27/19 10/27/19 12:03 13:20 14:33 Glucose POC Glucose 564 H* 372 H* 336 H* Laboratory Data (last 24hrs): 10/27/19 10/27/19 10:40 10:40 Potassium Cancelled 4.5 Carbon Dioxide Cancelled 26 Anion Gap Cancelled 9.0 Creatinine Cancelled 1.43 H Est Cr Clr Drug Dosing Cancelled 59.6 Beta-Hydroxybutyric Acd 2.36 - Recent Pertinent Medications Outpatient Anti-diabetic Regimen: * none * A1c = 12 % 10/26/19 - Assessment & Plan Assessment & Plan: ASSESSMENT: * 68 year old male referred to ED by PCP for hyperglycemia, A1c 12% per outpatient labs yesterday. * Patient's blood sugar 726mg/dl, down to 564mg/dl after 2 L IV fluids, then down to 372mg/dl after 10 units IV regular insulin. * All other labs at goal, except some mild hyponatremia. BHA normal, no ketones in urine. No anion gap. * Patient did feel better. Dr. Mayo who sent the patient in did not believe pt could be seen outpatient tomorrow and recommended observation because they would not be able to get him into the office. * Patient remains on IV fluids, changed to 1/2NS + 20K+ @125ml/hr. * Will begin basal bolus insulin therapy, weight based, and titrate to goal. PLAN FOR INPATIENT GLYCEMIC CONTROL: * Basal insulin * Lantus 25 units SQ daily starting now * Bolus insulin * NovoLog per scale ACHS or Q6hrs while NPO * Goal Range: Low 140 mg/dL - High 180 mg/dL - higher goal range for admitting blood sugar and A1c * Correction Factor: 25 mg/dL/unit * Nutritional / Prandial insulin per carb ratio of 1 unit per 8 grams CHO consumed * Please note that the plan above was derived based on current level of insulin resistance and hospital stress. These recommendations are appropriate for inpatient admission only. Plan of care upon discharge will need to be reassessed to avoid potential outpatient hypo/hyperglycemia. Thank you.
[2019-10-27 15:20] LABS: BUN Creatinine Ratio 24.3 (10-20); Creatinine Clr Calc Pharmacy 72.2 ml/min; Est GFR (African American) 72.5; Est GFR (Non-African American) 62.6; Magnesium 1.9 mg/dl (1.8-2.4); Phosphorus 3.4 mg/dl (2.5-4.9); Potassium 4.1 mmol/L (3.5-5.1)
[2019-10-27 15:35] LABS: Beta-Hydroxybutyrate 1.42 mg/dl (0.2-2.81)
[2019-10-27] MEDS ORDERED: PENDING D5 1/2NS+20mEq KCL IVF SCH (16:00)
[2019-10-27] MEDS: SODIUM CHLOR 0.45% + 20MEQ KCL 20 MEQ/1,000 ML BAG IV SCH (16:45)
[2019-10-27] MEDS: INSULIN GLARGINE SOLOSTAR 100 UNITS/ML 3 ML PEN SC SCH (16:46)
[2019-10-27] MEDS: INSULIN ASPART 100 UNITS/ML 3 ML PEN SC SCH ×2 (17:30→21:22)
[2019-10-27 19:09] LABS: BUN Creatinine Ratio 23.9 (10-20); Calcium 9.2 mg/dl (8.5-10.1); Creatinine Clr Calc Pharmacy 83.5 ml/min; Est GFR (African American) 86.5; Est GFR (Non-African American) 74.6; Magnesium 1.9 mg/dl (1.8-2.4); Potassium 3.7 mmol/L (3.5-5.1)
[2019-10-27] MEDS: gemfibroziL 600 MG TAB PO SCH (20:20)
[2019-10-27] MEDS: SENNA 8.6 MG TAB PO SCH (20:20)
[2019-10-27] MEDS: MULTIVITAMIN TAB PO SCH (20:21)
[2019-10-27] MEDS: CYANOCOBALAMIN 500 MCG TABLET (VITAMIN B-12) PO SCH (20:21)
[2019-10-27] MEDS: CHOLECALCIFEROL 1,000 UNITS 25 MCG TAB PO SCH (20:21)
[2019-10-27] MEDS: GABAPENTIN 300 MG CAP PO SCH (20:22)
[2019-10-27] MEDS: ASCORBIC ACID 500 MG TAB PO SCH (20:22)
[2019-10-27] MEDS: DOCUSATE SODIUM 100 MG CAP PO SCH (20:24)
[2019-10-27] MEDS: ACETAMINOPHEN 500 MG TAB PO SCH (20:25)
[2019-10-27] MEDS: HEPARIN SOD 5,000 UNIT/0.5 ML VIAL SQ SCH (21:27)
[2019-10-27 23:07] LABS: BUN Creatinine Ratio 21.5 (10-20); Calcium 8.9 mg/dl (8.5-10.1); Creatinine Clr Calc Pharmacy 78.1 ml/min; Est GFR (African American) 79.8; Est GFR (Non-African American) 68.9; Magnesium 1.8 mg/dl (1.8-2.4); Potassium 3.7 mmol/L (3.5-5.1)
[2019-10-28] MEDS: SODIUM CHLOR 0.45% + 20MEQ KCL 20 MEQ/1,000 ML BAG IV SCH ×2 (01:22→08:21)
[2019-10-28] MEDS ORDERED: INSULIN ASPART 100 UNITS/ML 3 ML PEN SC ONE (02:00)
[2019-10-28 02:58] LABS: BUN Creatinine Ratio 25.1 (10-20); Calcium 8.5 mg/dl (8.5-10.1); Creatinine Clr Calc Pharmacy 83.5 ml/min; Est GFR (African American) 86.5; Est GFR (Non-African American) 74.6; Magnesium 1.9 mg/dl (1.8-2.4); Potassium 3.6 mmol/L (3.5-5.1)
[2019-10-28] MEDS: HEPARIN SOD 5,000 UNIT/0.5 ML VIAL SQ SCH ×3 (06:03→21:24)
[2019-10-28] MEDS: LEVOTHYROXINE SODIUM 88 MCG TABLET PO SCH (06:03)
[2019-10-28] MEDS: INSULIN ASPART 100 UNITS/ML 3 ML PEN SC SCH ×4 (08:21→20:41)
[2019-10-28] MEDS: INSULIN GLARGINE SOLOSTAR 100 UNITS/ML 3 ML PEN SC SCH (08:24)
[2019-10-28] MEDS: allopurinoL 300 MG TAB PO SCH (08:25)
[2019-10-28] MEDS: gemfibroziL 600 MG TAB PO SCH ×2 (08:25→20:15)
[2019-10-28] MEDS: GABAPENTIN 300 MG CAP PO SCH ×2 (08:26→20:16)
[2019-10-28] MEDS: allopurinoL 100 MG TAB PO SCH (08:26)
--- NOTE | 2019-10-28 14:28 | Hospitalist Progress Note ---
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 Plan to return home once medically stable. Admission and Anticipated Discharge Date Admission Date: October 27, 2019 Subjective ff up for hyperglycemia, DM 2 seen resting in chair, comfortable states he feels improved compared to yesterday denies chest pain, dyspnea, palpitations, dizziness no abdominal pain, nausea no other symptoms Review of Systems Review of Systems: All systems reviewed & are unremarkable except as noted in HPI & below Physical Exam Physical Exam: General- oriented x 3, not in distress, speaks in sentences with no effort or accessory muscle use Head- atraumatic Eyes- PERRL, EOMI, anicteric ENT- oropharynx clear Neck- supple, no JVD, no adenopathy, no thyromegaly; carotids +2/2, no bruits appreciated Lungs- clear to auscultation bilaterally, no rales/wheezes Heart- normal rate, regular rhythm; no murmur, no gallop, no rub appreciated Abdomen- normal bowel sounds, nondistended, soft, nontender, no masses or hepatosplenomegaly Extremities- no pretibial edema, no calf tenderness; peripheral pulses intact Neuro- alert, oriented x 3; CN 2-12 grossly intact; motor 5/5 bilaterally;sensation 100% on all extremities; no other gross focal neurologic deficits Skin- warm & dry Results & Data ([facility]) Vital Signs (Past 12 Hours) Vital Signs Temp Pulse Pulse Pulse Resp BP Pulse Ox 10/28/19 12:11 59 L 10/28/19 12:00 37.1 C 79 18 139/84 92 10/28/19 08:00 36.4 C L 57 L 18 134/78 95 10/28/19 04:00 36.7 C 69 20 122/78 98
--- NOTE | 2019-10-28 14:38 | Pharmacy Report ---
Pharmacy Glycemic Short Note 2 - Date of Service October 28, 2019 - Glycemic Short BSG Results (Last 24 hours): 10/27/19 10/27/19 10/27/19 14:33 14:39 16:41 Glucose 345 H* POC Glucose 336 H* 336 H* 10/27/19 10/27/19 10/27/19 16:42 18:17 20:32 Glucose 281 H POC Glucose 319 H* 160 H 10/27/19 10/27/19 10/28/19 22:22 22:24 01:20 Glucose 171 H POC Glucose 170 H 101 H 10/28/19 10/28/19 10/28/19 02:23 07:56 11:23 Glucose 94 POC Glucose 151 H 308 H* 10/28/19 10/28/19 11:25 11:29 Glucose POC Glucose 232 H 264 H OUTPATIENT ANTIDIABETIC REGIMEN: * none * A1c = 12 % 10/26/19 ASSESSMENT: 10/28/19 * Patient received 59 units of insulin yesterday, 25 basal, 34 prandial. Fasting blood sugar at goal, blood sugar rising with meals, tighten CR. * Patient to go home on insulin and metformin, see recommendations below. Patient and overwhelmed at this point so will likely defer GLP-1 choice up to PCP. 10/27/19 * 68 year old male referred to ED by PCP for hyperglycemia, A1c 12% per outpatient labs yesterday. * Patient's blood sugar 726mg/dl, down to 564mg/dl after 2 L IV fluids, then down to 372mg/dl after 10 units IV regular insulin. * All other labs at goal, except some mild hyponatremia. BHA normal, no ketones in urine. No anion gap. * Patient did feel better. Dr. Mayo who sent the patient in did not believe pt could be seen outpatient tomorrow and recommended observation because they would not be able to get him into the office. * Patient remains on IV fluids, changed to 1/2NS + 20K+ @125ml/hr. * Will begin basal bolus insulin therapy, weight based, and titrate to goal. PLAN FOR INPATIENT GLYCEMIC CONTROL: * Basal insulin * Lantus 25 units SQ daily * Bolus insulin * NovoLog per scale ACHS or Q6hrs while NPO`1 * TIGHTEN: Goal Range: Low 110 mg/dL - High 140 mg/dL * Correction Factor: 25 mg/dL/unit * TIGHTEN: Nutritional / Prandial insulin per carb ratio of 1 unit per 4 grams CHO consumed PLAN FOR DISCHARGE: * A1c is greater than 10% consider triple therapy with metformin + basal insulin + (GLP1-RA OR prandial insulin). May need to continue additional antidiabetic agent based on patient specific factors (efficacy, hypo risk, weight gain/loss, side effects, cost) Recommend: oMetformin XR 500mg PO daily with evening meal. Typically the XR formulation of metformin is better tolerated than the immediate release formulation. Continue to titrate metformin dosing upwards as recommended. Dosage increases should be made in increments of 500 mg weekly, up to 2,000 mg/day PO, given in divided doses. Doses above 2000 mg/day may be better tolerated if divided and given 3 times per day with meals. Max: 2,550 mg/day PO, in divided doses B12 supplementation may be necessary with snf metformin oBasal insulin: Glargine 50 units SQ daily (and titrate to goal) [id number]: Consider when seeing PCP/Endo, This will be based off of insurance coverage and patient preference of weekly vs daily injection
[2019-10-28] MEDS: CYANOCOBALAMIN 500 MCG TABLET (VITAMIN B-12) PO SCH (20:15)
[2019-10-28] MEDS: MULTIVITAMIN TAB PO SCH (20:15)
[2019-10-28] MEDS: SENNA 8.6 MG TAB PO SCH (20:16)
[2019-10-28] MEDS: CHOLECALCIFEROL 1,000 UNITS 25 MCG TAB PO SCH (20:16)
[2019-10-28] MEDS: ASCORBIC ACID 500 MG TAB PO SCH (20:16)
[2019-10-28] MEDS: DOCUSATE SODIUM 100 MG CAP PO SCH (20:17)
[2019-10-28] MEDS: ACETAMINOPHEN 500 MG TAB PO SCH (20:19)
[2019-10-29] MEDS: HEPARIN SOD 5,000 UNIT/0.5 ML VIAL SQ SCH ×2 (06:07→12:30)
[2019-10-29] MEDS: LEVOTHYROXINE SODIUM 88 MCG TABLET PO SCH (06:07)
[2019-10-29 07:04] LABS: BUN Creatinine Ratio 19.2 (10-20); Calcium 9.2 mg/dl (8.5-10.1); Creatinine Clr Calc Pharmacy 80.1 ml/min; Est GFR (African American) 82.6; Est GFR (Non-African American) 71.3; Potassium 4.7 mmol/L (3.5-5.1)
[2019-10-29] MEDS: INSULIN ASPART 100 UNITS/ML 3 ML PEN SC SCH ×2 (08:23→12:29)
[2019-10-29] MEDS: INSULIN GLARGINE SOLOSTAR 100 UNITS/ML 3 ML PEN SC SCH (08:23)
[2019-10-29] MEDS: gemfibroziL 600 MG TAB PO SCH (08:24)
[2019-10-29] MEDS: GABAPENTIN 300 MG CAP PO SCH (08:24)
[2019-10-29] MEDS: allopurinoL 100 MG TAB PO SCH (08:25)
[2019-10-29] MEDS: allopurinoL 300 MG TAB PO SCH (08:25)
--- NOTE | 2019-10-29 13:24 | Hospitalist Progress Note ---
Date of Service October 29, 2019 Assessment & Plan (1) Hyperglycemia: (2) Diabetes mellitus type II, uncontrolled: -- new diagnosis -- A1c 12 based on outpatient records -- patient given Lantus and Novology while admitted -- BSGs improved to 100-200s -- Pharmacy Glycemic Control consulted recommend: Lantus 50 units in AM and Metformin XR 500mg in AM continue to titrated accordingly as outpatient -- discussed with patient and his at length education given re: insulin administration, hypoglycemia symptoms, etc. 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 Has been in remission for the past few years (6) Gout: Continue allopurinol DVT Ppx: SQ heparin given Disposition d/c home ff up with PCP this week refer to Endo and Marketing Research Intern Admission and Anticipated Discharge Date Admission Date: October 27, 2019 Subjective ff up for newly diagnosed DM 2, hyperglycemia seen sitting up in bed, comfortable states he feels even better today compared to yesterday more energy, less polyuria no dizziness vision improving denies chest pain, dyspnea, palpitations, dizziness no abdominal pain, nausea, problems with BM no other symptoms states he is ready and is agreeable for discharge today Review of Systems Review of Systems: All systems reviewed & are unremarkable except as noted in HPI & below Physical Exam Physical Exam: General- oriented x 3, not in distress, speaks in sentences with no effort or accessory muscle use Eyes- anicteric Neck- no JVD Lungs- clear breath sounds bilaterally, no rales/wheezes Heart- normal rate, regular rhythm; no murmurs Abdomen- normal bowel sounds, nondistended, soft, nontender Extremities- no pretibial edema, no calf tenderness Neuro- alert, oriented x 3; no gross focal neurologic deficits Skin- warm & dry Results & Data ([facility]) Vital Signs (Past 12 Hours) Vital Signs Temp Pulse Resp BP BP Pulse Ox 10/29/19 11:33 36.5 C 70 18 115/72 97 10/29/19 08:00 36.3 C L 62 18 135/87 93 10/29/19 02:44 36.2 C L 92 H 19 136/84 98
--- NOTE | 2019-10-29 14:06 | Discharge Summary ---
Date of Service October 29, 2019 Admission HPI Per Admitting Provider This is a 68-year-old male with a PMH of recurrent low-grade lymphoma in remission, newly diagnosed type 2 diabetes, HLD and other medical problems listed below who presents based on PCP recommendation due to hyperglycemia. Patient initially noted to have elevated blood glucose at the end of September but states he is not started on any medication. For the past few months, endorses increased thirst, urination and a 20 pound weight loss. Also endorses blurry vision and generalized weakness. Had lab work done yesterday and was found to have an elevated hemoglobin A1c of 12. Was sent to ED for further evaluation and concern for DKA/HHS. Upon arrival, was found to have elevated BSG of 726. Creatinine elevated at 1.43 (baseline creatinine ~1). No ketones in urine and beta hydroxybutyric acid is within normal range. Denies any fever, chills, chest pain, palpitations, shortness of breath, nausea, vomiting, abdominal pain, dysuria, diarrhea or constipation. Admission Exam Per Admitting Provider Gen-AAO x 3, NAD, Afebrile Head-NCAT, EOMI, PERRLA, Anicteric Sclera, No Posterior Pharyngeal Erythema Neck-Supple, No JVD, No Thyromegaly, No Masses, No LAD, No Bruits Lungs-Clear to Auscultation Bilaterally, No Rales, No Rhonchi, No Wheezing, No Crepitus Chest-No S4, +S1, +S2, No S3, No Murmurs, No Rubs, No Gallops, No Ectopy Abdomen-Soft, Bowel Sounds Present, Non Tender, Non Distended, No Hepatomegaly, No Splenomegaly, No Palpable Masses, No Rebound, No Rigidity, No Guarding Musculoskeletal-Full Range of Motion Bilaterally, No CVAT Extremities-No Cyanosis, No Clubbing, No Edema Nuero-Cranial Nerves II-XII grossly intact, Motor WNL, DTRs WNL, Strength WNL, Non Focal Psych-Normal Mood Principal Diagnosis DIABETES TYPE 2, NEW DIAGNOSIS Discharge Exam General- oriented x 3, not in distress, speaks in sentences with no effort or accessory muscle use Eyes- anicteric Neck- no JVD Lungs- clear breath sounds bilaterally, no rales/wheezes Heart- normal rate, regular rhythm; no murmurs Abdomen- normal bowel sounds, nondistended, soft, nontender Extremities- no pretibial edema, no calf tenderness Neuro- alert, oriented x 3; no gross focal neurologic deficits Skin- warm & dry Discharge Data Allergies Allergy/AdvReac Type Severity Reaction Status Date / Time Sulfa (Sulfonamide Allergy Severe [id number], Verified 10/27/19 11:34 Antibiotics) ITCHY doxycycline AdvReac Severe vasculitis Unverified 10/27/19 11:34 Consultations 10/27/19 13:11 ED Decision to Admit Stat Hospital Course (1) Hyperglycemia: (2) Diabetes mellitus type II, uncontrolled: -- new diagnosis -- A1c 12 based on outpatient records -- blood gulcose > 600 on admission no anion gap, no acidosis -- patient given Lantus and Novology while admitted -- BSGs gradually improved to 100-200s -- Pharmacy Glycemic Control consulted recommend: Lantus 50 units in AM and Metformin XR 500mg in AM continue to titrate accordingly as outpatient -- discussed with patient and his at length education given re: insulin administration, hypoglycemia symptoms, etc. they are understanding, agreeable and comfortable with the plan of care -- ff up with PCP this week recommend referral to Axle Bearing Polisher and Roofing Tile Sorter (3) Acute kidney injury: Cr elevated at 1.41 in setting of dehydration (baseline Cr ~ 1) - given IV NSS - crea normalized (4) Hypertriglyceridemia: Continue gemfibrozil, niacin (5) Lymphoma, low grade: Follows with Dr. Chavez. Has been in remission for the past few years (6) Gout: Continue allopurinol DVT Ppx: SQ heparin given Disposition d/c home ff up with PCP this week refer to Endo and Roofing Tile Sorter Total Time Total Time Spent Total Time Spent (In Minutes): 50 mins Discharge Plan Discharge Items Patient Disposition: Home - Self-Care Reason For Visit: HYPERGLYCEMIA, [place] Discharge Diagnosis: DIABETES MELLITUS TYPE 2 Activity: As commented below Activity Comment: RESUME ACTIVITY GRADUALLY TOLERATED, NO HEAVY EXERTION Lifting: Wait until after follow-up appointment Exercise/Sports: Wait until after follow-up appointment Driving/Machine Use: NO DRIVING UNTIL RE-EVALUATED AND ALLOWED BY PRIMARY CARE PHYSICIAN Non-emergency contact: Primary Care Provider Call non-emergency contact if: you have any medication questions, your symptoms worsen and you have a fever Follow-up/Referrals: Keertih Gabriel MD [Primary Care Provider] - Diet: Carb Consistent or DM2 and Heart Healthy Addtl Attending Provider Instructions: PLEASE REVIEW YOUR NEW MEDICATION LIST AND FOLLOW INSTRUCTIONS CAREFULLY. ALWAYS TAKE YOUR BLOOD SUGAR READING FIRST BEFORE ADMINISTERING INSULIN. DO NOT ADMINISTER INSULIN OR TAKE METFORMIN IF YOUR BLOOD SUGAR NUMBER IS 110 OR BELOW. RECORD YOUR BLOOD SUGAR READING BEFORE BREAKFAST AND BEFORE DINNER. DO NOT USE NSAID MEDICATIONS SUCH MELOXICAM, IBUPROFEN, NAPROXEN THESE MAY BE TOO HARD ON YOUR KIDNEYS NOW THAT YOU ARE TAKING METFORMIN. DRINK PLENTY OF FLUIDS. CALL YOUR PRIMARY CARE PHYSICIAN IF YOUR BLOOD SUGAR READINGS ARE PERSISTENTLY < 200s. FOLLOW UP WITH DR. GABRIEL IN 1 WEEK. THE CLINIC WILL BE CALLING SOON YOU FOR THE APPOINTMENT. YOU ALSO NEED TO FOLLOW UP WITH AN AUTO ACCESSORIES INSTALLER. YOUR PRIMARY CARE PHYSICIAN CAN ASSIST YOU WITH THE REFERRAL. Pending Studies at Discharge: No Stand-Alone Forms: My [facility] [employer], Smoking Cessation Medications and DC Order Prescriptions: New Lantus Solostar U-100 Insulin 100 unit/mL (3 mL) Insulin Pen 50 unit SC DAILY 30 Days Qty: 15 RF: 2 metformin 500 mg tablet extended release 24 hr 500 mg PO DAILY 30 Days Qty: 30 RF: 2 Continued multivitamin Tablet 1 tab PO HS RF: 0 sennosides [senna] 8.6 mg Tablet 8.6 mg PO HS RF: 0 ascorbic acid (vitamin C) [Vitamin C] 1,000 mg Tablet 1,000 mg PO HS RF: 0 cyanocobalamin (vitamin B-12) [Vitamin B-12] 1,000 mcg Tablet 1,000 mcg PO HS RF: 0 allopurinol 100 mg tablet 100 mg PO QAM RF: 0 niacin 50 mg Tablet 50 mg PO QAM RF: 0 levothyroxine 88 mcg tablet 88 mcg PO QAM RF: 0 gemfibrozil 600 mg tablet 600 mg PO BID RF: 0 docusate sodium [Colace] 100 mg Capsule 100 mg PO HS RF: 0 gabapentin 300 mg capsule 300 mg PO BID RF: 0 omeprazole 20 mg capsule,delayed release(DR/EC) 20 mg PO DAILY PRN (Reason: Acid Reflux) RF: 0 allopurinol 300 mg tablet 300 mg PO QAM RF: 0 diphenhydramine-acetaminophen [Tylenol PM Extra Strength] 25-500 mg Tablet 1 tab PO HS RF: 0 cholecalciferol (vitamin D3) [Vitamin D3] 25 mcg (1,000 unit) Capsule 1,000 unit PO HS RF: 0 melatonin 5 mg Tablet 5 mg PO HS RF: 0 Probiotic 15 billion cell Capsule, Sprinkle 1 cap PO DAILY RF: 0 Discontinued meloxicam 15 mg tablet 15 mg PO QAM RF: 0 Discharge Orders: Discharge Order (Routine); Ordered 10/29/19 Ordered By: Moises Brown/Other Patient Handouts: Diabetes Senior Living Complications, Diabetes Resources, Diabetes Healthy Meals, Understanding Carbohydrates, Diabetes Exercise Benefits, Diabetes Living Life, Diabetes Manage A1C Test Admission Data Admit Date/Time: 10/27/19 13:38 Attending Provider: Moises Talavera Admit Provider: Jadiel Wesley Primary Care Provider: Keerthi Gabriel Other Providers: Jadiel Wesley
== END 2019-10-29 15:07 | disposition home or self-care (01) | DRG 638 ==
LOC: ED 10:04 → 2N 13:38 → SUATTDRO 13:38 → 2N 13:55